=== PATIENT | female | born 1960 | race Caucasian/White ===

== ENCOUNTER 2023-08-17 19:17 | Inpatient (IN) ==
[2023-08-17] MEDS ORDERED: IOPAMIDOL 100 ML BOTTLE IV ONE (19:18)
[2023-08-17] MEDS ORDERED: 0.9 % SODIUM CHLORIDE 1,000 ML IV ONE ×2 (19:23→21:04)
[2023-08-17 19:43] LABS: POC Calcium, Ionized 1.09 (1.16-1.32); POC Creatinine 0.6 (0.6-1.2); POC Potassium 4.2 (3.3-5.1)
[2023-08-17 20:18] LABS: Basophils # (Auto) 0.02 K/mcL (0.00-0.30); Basophils % (Auto) 0.2 % (0.0-2.0); Eosinophils # (Auto) 0.05 K/mcL (0.00-0.70); Eosinophils % (Auto) 0.6 % (0.0-7.0); Hemoglobin 10.3 g/dL (11.2-15.7); Lymphocytes # (Auto) 0.51 K/mcL (1.50-4.80); Lymphocytes % (Auto) 5.7 % (15.5-49.0); Mean Corpuscular HGB Conc 30.3 g/dL (31.0-36.0); Monocytes # (Auto) 0.35 K/mcL (0.10-0.90); Monocytes % (Auto) 3.9 % (1.0-12.0); Neutrophils % (Auto) 89.2 % (38.0-78.0); Platelet Count 282 K/mcL (140-440); Red Cell Distribution Width 17.1 % (11.5-14.5)
[2023-08-17] MEDS ORDERED: CIPROFLOXACIN 500 MG TABLET PO ONE (20:48)
[2023-08-17] MEDS ORDERED: ACETAMINOPHEN 1,000 MG/100 ML BAG IV ONE (21:04)
[2023-08-17] MEDS ORDERED: ONDANSETRON 4 MG/2 ML VIAL IV ONE (21:04)
[2023-08-17] MEDS ORDERED: METOPROLOL TARTRATE 25 MG TABLET PO ONE (21:50)
[2023-08-17] MEDS ORDERED: 0.9 % SODIUM CHLORIDE 500 ML IV ONE (21:51)
[2023-08-17] MEDS ORDERED: LACTATED RINGERS 1,000 ML IV SCH (23:45)
[2023-08-17] MEDS ORDERED: ONDANSETRON 4 MG/2 ML VIAL IV PRN (23:46)
[2023-08-17] MEDS ORDERED: HYDROmorphone 0.5 MG/0.5 ML SYRINGE IV PRN (23:46)
[2023-08-17] MEDS ORDERED: IBUPROFEN 600 MG TABLET PO PRN (23:46)
[2023-08-17] MEDS ORDERED: traZODone HCL 50 MG TABLET PO PRN (23:46)
[2023-08-18] MEDS ORDERED: cefTRIAXone 2 GM VIAL ONE (01:50)
[2023-08-18] MEDS ORDERED: traZODone HCL 50 MG TABLET ONE (01:52)
[2023-08-18] MEDS: cefTRIAXone 2 GM in DEXTROSE 5% IN WATER 50 ML IV SCH ×3 (02:06→16:39)
[2023-08-18] MEDS ORDERED: ACETAMINOPHEN 325 MG TABLET PO ONE (03:17)
[2023-08-18] MEDS: ACETAMINOPHEN 325 MG TABLET PO PRN (03:18)
[2023-08-18] MEDS ORDERED: HYDROmorphone 0.5 MG/0.5 ML SYRINGE ONE (04:41)
[2023-08-18] MEDS: 0.9 % SODIUM CHLORIDE 10 ML SYRINGE IV SCH ×3 (05:15→20:21)
[2023-08-18 07:05] LABS: Basophils # (Auto) 0.01 K/mcL (0.00-0.30); Basophils % (Auto) 0.2 % (0.0-2.0); Eosinophils # (Auto) 0 K/mcL (0.00-0.70); Eosinophils % (Auto) 0 % (0.0-7.0); Hematocrit 26.9 % (34.1-44.9); Lymphocytes # (Auto) 0.67 K/mcL (1.50-4.80); Lymphocytes % (Auto) 10.5 % (15.5-49.0); Mean Cell Volume 86.5 fL (80.0-100.0); Mean Corpuscular HGB Conc 29.7 g/dL (31.0-36.0); Mean Platelet Volume 10.9 fL (8.8-12.5); Monocytes # (Auto) 0.26 K/mcL (0.10-0.90); Monocytes % (Auto) 4.1 % (1.0-12.0); Neutrophils % (Auto) 84.6 % (38.0-78.0); Platelet Count 209 K/mcL (140-440); RBC 3.11 M/mcL (3.59-5.38); Red Cell Distribution Width 17.2 % (11.5-14.5); WBC 6.4 K/mcL (4.5-11.0)
[2023-08-18 07:31] LABS: ALT/SGPT 21 U/L (<40); AST/SGOT 44 U/L (<32); Alkaline Phosphatase 97 U/L (39-117); Bilirubin,Total 0.4 mg/dL (0.1-1.0); Blood Urea Nitrogen 15 mg/dL (8-23); Calcium 7.5 mg/dL (8.6-10.4); Carbon Dioxide 19 mmol/L (22-30); Chloride 100 mmol/L (96-108); Globulin 3.1 gm/dL (2.2-3.7); Glomerular Filtration Rate 80; Glucose 254 mg/dL (70-105)
[2023-08-18] MEDS ORDERED: DEXTROSE 50% 50 ML VIAL IV PRN (08:20)
[2023-08-18] MEDS ORDERED: DEXTROSE 31 GM ORAL.SUSP PO PRN (08:20)
[2023-08-18] MEDS ORDERED: SERTRALINE 100 MG TABLET PO SCH (09:00)
[2023-08-18] MEDS ORDERED: IPRATROPIUM/ALBUTEROL 3 ML AMPUL.NEB NEB SCH (09:00)
[2023-08-18] MEDS ORDERED: SIMVASTATIN 10 MG TABLET PO SCH (09:00)
[2023-08-18] MEDS ORDERED: PRAVASTATIN 40 MG TABLET PO SCH (09:00)
[2023-08-18] MEDS: ENOXAPARIN 40 MG/0.4 ML SYRINGE SQ SCH ×2 (09:01→09:07)
[2023-08-18] MEDS: INSULIN GLARGINE, HUMAN 1 UNIT/0.01 ML SQ SCH ×2 (09:02→20:20)
[2023-08-18] MEDS: GABAPENTIN 300 MG CAPSULE PO SCH ×3 (09:03→20:20)
[2023-08-18] MEDS: LISINOPRIL 10 MG TABLET PO SCH (09:03)
[2023-08-18] MEDS: METOPROLOL TARTRATE 25 MG TABLET PO SCH ×2 (09:04→20:21)
[2023-08-18] MEDS: DOCUSATE SODIUM 100 MG CAPSULE PO SCH ×3 (09:04→20:21)
[2023-08-18] MEDS: metFORMIN 500 MG TABLET PO SCH ×2 (09:04→17:03)
[2023-08-18] MEDS: BREO ELLIPTA INH SCH (09:05)
[2023-08-18] MEDS ORDERED: ALBUTEROL SULFATE 2.5 MG/3 ML NEBULIZER NEB PRN (09:31)
[2023-08-18 11:07] LABS: Hemoglobin A1C 9.5 % Hgb (4.0-6.0)
[2023-08-18] MEDS: INSULIN LISPRO 1 UNIT/0.01 ML UNIT SQ SCH ×5 (12:17→20:20)
[2023-08-18] MEDS ORDERED: IPRATROPIUM/ALBUTEROL 3 ML AMPUL.NEB NEB ONE (19:30)
[2023-08-18] MEDS: IPRATROPIUM/ALBUTEROL 3 ML AMPUL.NEB NEB SCH (19:32)
[2023-08-18] MEDS: SIMVASTATIN 10 MG TABLET PO SCH (20:20)
[2023-08-18] MEDS: SENNOSIDES 1 TABLET PO SCH (20:21)
[2023-08-18] MEDS: AMITRIPTYLINE 25 MG TABLET PO SCH (20:21)
[2023-08-18] MEDS: OMEPRAZOLE 20 MG CAPSULE PO SCH (20:21)
[2023-08-19 06:40] LABS: Basophils # (Auto) 0.01 K/mcL (0.00-0.30); Basophils % (Auto) 0.2 % (0.0-2.0); Eosinophils # (Auto) 0.04 K/mcL (0.00-0.70); Eosinophils % (Auto) 0.8 % (0.0-7.0); Hematocrit 28.2 % (34.1-44.9); Hemoglobin 8.4 g/dL (11.2-15.7); Lymphocytes # (Auto) 1.17 K/mcL (1.50-4.80); Lymphocytes % (Auto) 24.8 % (15.5-49.0); Mean Corpuscular HGB Conc 29.8 g/dL (31.0-36.0); Mean Platelet Volume 10.9 fL (8.8-12.5); Monocytes # (Auto) 0.28 K/mcL (0.10-0.90); Monocytes % (Auto) 5.9 % (1.0-12.0); Neutrophils % (Auto) 67.7 % (38.0-78.0); Platelet Count 240 K/mcL (140-440); RBC 3.28 M/mcL (3.59-5.38); Red Cell Distribution Width 17.4 % (11.5-14.5); WBC 4.7 K/mcL (4.5-11.0)
[2023-08-19 07:01] LABS: ALT/SGPT 18 U/L (<40); AST/SGOT 37 U/L (<32); Albumin 2.9 gm/dL (3.2-5.2); Albumin/Globulin Ratio 0.8 (1.0-2.3); Alkaline Phosphatase 92 U/L (39-117); Bilirubin,Direct < 0.2 mg/dL (0-0.3); Bilirubin,Total 0.4 mg/dL (0.1-1.0); Blood Urea Nitrogen 13 mg/dL (8-23); Calcium 7.9 mg/dL (8.6-10.4); Carbon Dioxide 21 mmol/L (22-30); Chloride 100 mmol/L (96-108); Globulin 3.6 gm/dL (2.2-3.7); Glomerular Filtration Rate 80; Glucose 109 mg/dL (70-105); Lactate Dehydrogenase 148 U/L (135-225); Phosphorous 2.7 mg/dL (2.5-4.5); Triglycerides 100 mg/dL (<150); Uric Acid 4.4 mg/dL (2.5-8.0)
[2023-08-19] MEDS: IPRATROPIUM/ALBUTEROL 3 ML AMPUL.NEB NEB SCH ×2 (10:18→21:08)
[2023-08-19] MEDS: GABAPENTIN 300 MG CAPSULE PO SCH ×4 (11:08→20:28)
[2023-08-19] MEDS: INSULIN LISPRO 1 UNIT/0.01 ML UNIT SQ SCH ×6 (11:09→20:19)
[2023-08-19] MEDS: metFORMIN 500 MG TABLET PO SCH ×2 (11:09→18:00)
[2023-08-19] MEDS: SERTRALINE 100 MG TABLET PO SCH (11:09)
[2023-08-19] MEDS: LISINOPRIL 10 MG TABLET PO SCH (11:10)
[2023-08-19] MEDS: METOPROLOL TARTRATE 25 MG TABLET PO SCH ×2 (11:12→20:29)
[2023-08-19] MEDS: DOCUSATE SODIUM 100 MG CAPSULE PO SCH ×2 (11:12→20:18)
[2023-08-19] MEDS: ENOXAPARIN 40 MG/0.4 ML SYRINGE SQ SCH (11:12)
[2023-08-19] MEDS: BREO ELLIPTA INH SCH (11:15)
[2023-08-19] MEDS: METOPROLOL TARTRATE 5 MG/5 ML VIAL IV PRN ×3 (11:36→15:54)
[2023-08-19] MEDS: 0.9 % SODIUM CHLORIDE 10 ML SYRINGE IV SCH ×3 (11:43→20:29)
[2023-08-19] MEDS: INSULIN GLARGINE, HUMAN 1 UNIT/0.01 ML SQ SCH ×2 (12:02→20:28)
[2023-08-19] MEDS: METOPROLOL TARTRATE 5 MG/5 ML VIAL IV SCH ×2 (12:10→12:32)
[2023-08-19] MEDS: cefTRIAXone 2 GM in DEXTROSE 5% IN WATER 50 ML IV SCH (12:30)
[2023-08-19] MEDS ORDERED: FUROSEMIDE 40 MG/4 ML VIAL IV ONE (13:01)
[2023-08-19] MEDS: ACETAMINOPHEN 325 MG TABLET PO PRN (13:44)
[2023-08-19] MEDS ORDERED: DILTIAZEM 25 MG/5 ML VIAL IV ONE (14:37)
[2023-08-19] MEDS: SENNOSIDES 1 TABLET PO SCH (20:18)
[2023-08-19] MEDS ORDERED: METOPROLOL TARTRATE 25 MG TABLET ONE (20:26)
[2023-08-19] MEDS: OMEPRAZOLE 20 MG CAPSULE PO SCH (20:28)
[2023-08-19] MEDS: AMITRIPTYLINE 25 MG TABLET PO SCH (20:29)
[2023-08-19] MEDS: SIMVASTATIN 10 MG TABLET PO SCH (20:39)
[2023-08-20] MEDS: 0.9 % SODIUM CHLORIDE 10 ML SYRINGE IV SCH ×3 (05:25→20:25)
[2023-08-20] MEDS: METOPROLOL TARTRATE 5 MG/5 ML VIAL IV PRN (07:05)
[2023-08-20 07:23] LABS: ALT/SGPT 16 U/L (<40); AST/SGOT 30 U/L (<32); Albumin/Globulin Ratio 0.8 (1.0-2.3); Alkaline Phosphatase 91 U/L (39-117); Bilirubin,Direct < 0.2 mg/dL (0-0.3); Bilirubin,Total 0.3 mg/dL (0.1-1.0); Blood Urea Nitrogen 15 mg/dL (8-23); Calcium 8.5 mg/dL (8.6-10.4); Carbon Dioxide 21 mmol/L (22-30); Chloride 105 mmol/L (96-108); Globulin 3.6 gm/dL (2.2-3.7); Glomerular Filtration Rate 93; Glucose 134 mg/dL (70-105); Lactate Dehydrogenase 156 U/L (135-225); Phosphorous 3.5 mg/dL (2.5-4.5); Triglycerides 100 mg/dL (<150); Uric Acid 4.8 mg/dL (2.5-8.0)
[2023-08-20] MEDS: ENOXAPARIN 40 MG/0.4 ML SYRINGE SQ SCH ×2 (08:09→08:16)
[2023-08-20] MEDS: METOPROLOL TARTRATE 25 MG TABLET PO SCH ×2 (08:09→20:25)
[2023-08-20] MEDS: LISINOPRIL 10 MG TABLET PO SCH (08:10)
[2023-08-20] MEDS: SERTRALINE 100 MG TABLET PO SCH (08:10)
[2023-08-20] MEDS: DOCUSATE SODIUM 100 MG CAPSULE PO SCH ×3 (08:10→20:14)
[2023-08-20] MEDS: metFORMIN 500 MG TABLET PO SCH ×2 (08:10→17:07)
[2023-08-20] MEDS: GABAPENTIN 300 MG CAPSULE PO SCH ×4 (08:10→20:24)
[2023-08-20] MEDS: INSULIN LISPRO 1 UNIT/0.01 ML UNIT SQ SCH ×6 (08:25→20:25)
[2023-08-20] MEDS: INSULIN GLARGINE, HUMAN 1 UNIT/0.01 ML SQ SCH ×2 (08:26→20:26)
[2023-08-20] MEDS: cefTRIAXone 2 GM in DEXTROSE 5% IN WATER 50 ML IV SCH (10:15)
[2023-08-20] MEDS: BREO ELLIPTA INH SCH (10:17)
[2023-08-20] MEDS ORDERED: ALBUMIN HUMAN 12.5 GM/50 ML VIAL IV ONE (10:27)
[2023-08-20] MEDS ORDERED: DILTIAZEM 120 MG CAP.XL.24H PO ONE (10:27)
[2023-08-20] MEDS ORDERED: FUROSEMIDE 40 MG/4 ML VIAL IV ONE (10:27)
[2023-08-20] MEDS: IPRATROPIUM/ALBUTEROL 3 ML AMPUL.NEB NEB SCH ×2 (11:15→21:18)
[2023-08-20] MEDS ORDERED: DILTIAZEM 30 MG TABLET PO ONE (19:02)
[2023-08-20] MEDS: SENNOSIDES 1 TABLET PO SCH (20:14)
[2023-08-20] MEDS: OMEPRAZOLE 20 MG CAPSULE PO SCH (20:24)
[2023-08-20] MEDS: AMITRIPTYLINE 25 MG TABLET PO SCH (20:25)
[2023-08-20] MEDS: SIMVASTATIN 10 MG TABLET PO SCH (20:34)
[2023-08-21] MEDS ORDERED: DILTIAZEM 30 MG TABLET PO ONE ×2 (01:00→08:54)
[2023-08-21] MEDS: 0.9 % SODIUM CHLORIDE 10 ML SYRINGE IV SCH ×2 (04:58→14:38)
[2023-08-21] MEDS: metFORMIN 500 MG TABLET PO SCH (07:58)
[2023-08-21] MEDS: GABAPENTIN 300 MG CAPSULE PO SCH ×2 (07:58→12:03)
[2023-08-21] MEDS: SERTRALINE 100 MG TABLET PO SCH (07:58)
[2023-08-21] MEDS: ENOXAPARIN 40 MG/0.4 ML SYRINGE SQ SCH (08:01)
[2023-08-21] MEDS: DOCUSATE SODIUM 100 MG CAPSULE PO SCH (08:01)
[2023-08-21] MEDS: INSULIN LISPRO 1 UNIT/0.01 ML UNIT SQ SCH ×3 (08:02→12:03)
[2023-08-21] MEDS: cefTRIAXone 2 GM in DEXTROSE 5% IN WATER 50 ML IV SCH (08:16)
[2023-08-21] MEDS: INSULIN GLARGINE, HUMAN 1 UNIT/0.01 ML SQ SCH (08:17)
[2023-08-21] MEDS: BREO ELLIPTA INH SCH (08:18)
[2023-08-21] MEDS: IPRATROPIUM/ALBUTEROL 3 ML AMPUL.NEB NEB SCH (08:39)
[2023-08-21] MEDS ORDERED: METOPROLOL TARTRATE 25 MG TABLET PO SCH (09:00)
[2023-08-21] MEDS ORDERED: DILTIAZEM 30 MG TABLET PO SCH (11:30)
== END 2023-08-21 14:47 | disposition home or self-care (01) | DRG 872 ==
LOC: ED 19:17 → MEDSUR 08-18 01:03
PROVIDERS: ADMIT Internal Medicine; ATTEND Internal Medicine